=== PATIENT | female | born 1995 | race Caucasian/White ===

== ENCOUNTER 2019-11-17 18:14 | Emergency (ER) | payer OTHER, SELFPAY ==
[2019-11-17] MEDS ORDERED: Lidocaine 1% (PF) 30 ML VIAL ONE (18:25)
== END 2019-11-17 19:05 | disposition home or self-care (01) ==
LOC: NAV ERS 18:14
DX: S61.211A Laceration without foreign body of left index finger without damage to nail, initial encounter (principal); W26.0XXA Contact with knife, initial encounter; Y99.0 Civilian activity done for income or pay
CPT/HCPCS: 12001; J2001